=== PATIENT | female | born 1990 | race Caucasian/White ===

== ENCOUNTER 2016-11-15 11:53 | Emergency (ER) | payer OTHER ==
[2016-11-15 12:09] VITALS: BP 114/70; PULSE 86; TEMP 98.4; BMI 30.2
--- NOTE | 2016-11-15 13:48 | PDOC ---
History of Present Illness - General Chief Complaint: Cold Symptoms Stated Complaint: COLD SYMPTOMS, CONGESTION, COUGH Time Seen by Provider: 11/15/16 13:08 History Source: Patient Exam Limitations: No Limitations - History of Present Illness Initial Comments: 11/15/16 13:42 Patient here with complaints of generalized body aches, high fevers, non- productive cough, runny nose and sore throat. Severity: reports: mild Associated Symptoms: reports: chest pain/soreness, cough, facial pain, fever/ chills Past History - Travel Traveled outside of the country in the last 30 days: No Close contact w/someone who was outside of country & ill: No - Past Medical History Allergies/Adverse Reactions: Allergies Allergy/AdvReac Type Severity Reaction Status Date / Time No Known Allergies Allergy Verified 11/15/16 12:09 Home Medications: Ambulatory Orders Doxycycline Hyclate [Vibramycin -] 100 mg PO BID #14 cap 07/23/14 Oseltamivir Phosphate [Tamiflu -] 75 mg PO BID #10 capsule 11/15/16 Other medical history: ENIES - Psycho/Social/Smoking Cessation Hx Anxiety: No Suicidal Ideation: No Smoking History: Never smoked Have you smoked in the past 12 months: No Information on smoking cessation initiated: No Hx Alcohol Use: No Drug/Substance Use Hx: No Substance Use Type: None Review of Systems - Review of Systems Able to Perform ROS?: Yes Is the patient limited Sami proficient: Yes Constitutional: Yes: Symptoms Reported, See HPI, Fever, Malaise Respiratory: Yes: See HPI Cardiac (ROS): No: Symptoms Reported (nonproductive) Integumentary: Yes: Symptoms Reported, See HPI All Other Systems: Reviewed and Negative *Physical Exam - Vital Signs Last Vital Signs Temp Pulse Resp BP Pulse Ox 98.4 F 86 18 114/70 100 11/15/16 12:08 11/15/16 12:08 11/15/16 12:08 11/15/16 12:08 11/15/16 12:08 - Physical Exam General Appearance: Yes: Nourished, Appropriately Dressed, Apparent Distress, Mild Distress, Moderate Distress HEENT: positive: BETTY (glassy), Pharynx Normal (clear), Nasal Congestion Neck: positive: Supple, Lymphadenopathy (R), Lymphadenopathy (L) Respiratory/Chest: positive: Lungs Clear, Wheezing Cardiovascular: positive: Regular Rate Gastrointestinal/Abdominal: positive: Soft Extremity: positive: Normal Capillary Refill, Normal Inspection, Normal Range of Motion Integumentary: positive: Dry, Warm, Pale Neurologic: positive: marketing project specialist II-XII NML intact, Fully Oriented, Alert, Normal Mood/ Affect, Normal Response, Motor Strength 03/15 Progress Note - Progress Note Progress Note: Upper respiratory infection, probable influenza. Will treat with Tamiflu *DC/Admit/Observation/Transfer Diagnosis at time of Disposition: Upper respiratory infection, viral - Discharge Dispostion Disposition: HOME Condition at time of disposition: Stable Admit: No - Patient Instructions Printed Discharge Instructions: DI for Viral Upper Respiratory Infection -- Adult Additional Instructions: Rest, drink lots of fluids: Teas, water, soups, Pedialyte Saltwater gargles Steamy showers/seem to face break up mucus Old-fashioned treatments help! Avoid contact with others until fevers and cough resolved as this is very contagious Lots of handwashing and good hygiene Continue hikr-icy-[id number] medications for symptomatic relief Tylenol or Motrin for fever and pain Take all of Tamiflu as directed: 1 tab every 12 hours for 5 days Followup with private physician in one to 2 days as needed or if worsening Return to emergency department for worsened symptoms, fevers, dehydration Influenza takes between 5 and 7 days for resolution To not participate in any activity, work, or school until fevers and cough are gone for at least one day - Post Discharge Activity Work/School Note: Back to Work
== END 2016-11-15 13:49 | disposition home or self-care (01) ==
LOC: JERFT 11:53
DX: J06.9 Acute upper respiratory infection, unspecified (principal); B97.89 Other viral agents as the cause of diseases classified elsewhere
CPT/HCPCS: 99281-25

== ENCOUNTER 2019-10-21 17:58 | Emergency (ER) | payer OTHER ==
[2019-10-21 18:06] VITALS: BP 121/77; PULSE 81; TEMP 98; BMI 36.3
--- NOTE | 2019-10-21 18:06 | PDOC ---
Rapid Medical Evaluation Time Seen by Provider: 10/21/19 18:04 Medical Evaluation: Allergies Allergy/AdvReac Type Severity Reaction Status Date / Time No Known Allergies Allergy Verified 11/15/16 12:09 10/21/19 18:04 I have performed a brief in-person evaluation of this patient. The patient presents with a chief complaint of: Sore throat w/ congestion, cough and CP only w/ coughing x 4 days. No sob, n/v or fever. No pmhx, non smoker Pertinent physical exam findings:stable and well tye I have ordered the following:nothing The patient will proceed to the ED for further evaluation. Discharge Disposition - Diagnosis URI (upper respiratory infection) Qualifiers: URI type: unspecified viral URI Qualified Code(s): J06.9 - Acute upper respiratory infection, unspecified - Referrals - Patient Instructions - Post Discharge Activity
--- NOTE | 2019-10-21 19:00 | PDOC ---
History of Present Illness - General Chief Complaint: Cold Symptoms Stated Complaint: COLD SYMPTOMS Time Seen by Provider: 10/21/19 18:04 - History of Present Illness Initial Comments: 10/21/19 18:57 29-year-old female without comorbidities presents for cold-like symptoms without systemic symptoms x4 days Past History - Past Medical History Allergies/Adverse Reactions: Allergies Allergy/AdvReac Type Severity Reaction Status Date / Time No Known Allergies Allergy Verified 10/21/19 18:06 Home Medications: Ambulatory Orders Doxycycline Hyclate [Vibramycin -] 100 mg PO BID #14 cap 07/23/14 Oseltamivir Phosphate [Tamiflu -] 75 mg PO BID #10 capsule 11/15/16 COPD: No Other medical history: DENIES - Immunization History Immunization Up to Date: Yes - Psycho Social/Smoking Cessation Hx Smoking History: Never smoked Have you smoked in the past 12 months: No Information on smoking cessation initiated: No Hx Alcohol Use: No Drug/Substance Use Hx: No Substance Use Type: None Review of Systems - Review of Systems Constitutional: No: Fever HEENTM: Yes: Nose Congestion *Physical Exam - Vital Signs Last Vital Signs Temp Pulse Resp BP Pulse Ox 98.0 F 81 18 121/77 99 10/21/19 18:04 10/21/19 18:04 10/21/19 18:04 10/21/19 18:04 10/21/19 18:04 - Physical Exam 10/21/19 18:58 GENERAL: The patient is awake, alert, and fully oriented, in no acute distress. HEAD: Normal with no signs of trauma. EYES: sclera anicteric, conjunctiva clear. ENT: Ears normal tympanic membranes normal oropharynx clear uvula midline NECK: Normal range of motion LUNGS: Breath sounds equal, clear to auscultation bilaterally. No wheezes, and no crackles. HEART: S1 and S2 without murmur, rub or gallop. ABDOMEN: Soft, nontender, normoactive bowel sounds. No guarding, no rebound. No masses. EXTREMITIES: Normal range of motion, no edema. No clubbing or cyanosis. No cords, erythema, or tenderness. NEUROLOGICAL: Cranial nerves II through XII grossly intact. Normal speech, normal gait. PSYCH: Normal mood, normal affect. SKIN: Warm, Dry, normal turgor, no rashes or lesions noted. Medical Decision Making - Medical Decision Making 10/21/19 18:59 Influenza negative no systemic symptoms most likely viral upper respiratory infection supportive care. Discharge - Discharge Information Problems reviewed: Yes Clinical Impression/Diagnosis: URI (upper respiratory infection) Qualifiers: URI type: unspecified viral URI Qualified Code(s): J06.9 - Acute upper respiratory infection, unspecified Condition: Stable Disposition: HOME - Admission No - Follow up/Referral Referrals: Gabi Fan MD [Staff Physician] - - Patient Discharge Instructions Patient Printed Discharge Instructions: DI for Viral Upper Respiratory Infection -- Adult Additional Instructions: Return to the emergency room for worsening symptoms. Without fail please follow -up with your primary care physician in 2 to 3 days for further evaluation and treatment options. - Post Discharge Activity
== END 2019-10-21 19:35 | disposition home or self-care (01) ==
LOC: JERFT 17:58
DX: J06.9 Acute upper respiratory infection, unspecified (principal)
CPT/HCPCS: 87804; 99282-25

== ENCOUNTER 2021-09-20 17:55 | Emergency (ER) | payer OTHER ==
[2021-09-20 18:01] VITALS: BP 128/89; PULSE 84; TEMP 99.5; BMI 37.3
[2021-09-20] MEDS ORDERED: IBUPROFEN 400 MG TABLET (FP) PO ONE ×2 (18:12→18:17)
[2021-09-21 20:12] LABS: SARS-CoV-2 NAA Not Detected (Not Detected)
== END 2021-09-20 18:26 | disposition home or self-care (01) ==
LOC: FER 17:55
DX: R51.9 Headache, unspecified (principal); R50.9 Fever, unspecified; R05.9 Cough, unspecified
CPT/HCPCS: 87804; 99283-25; C9803; U0003; U0005

== ENCOUNTER 2021-09-21 16:25 | Emergency (ER) | payer OTHER ==
[2021-09-21 16:38] VITALS: BP 126/90; PULSE 76; TEMP 99; BMI 37.3
[2021-09-21] MEDS ORDERED: KETOROLAC TROMETHAMINE 30 MG/1 ML VIAL IM ONE (17:01)
[2021-09-21] MEDS ORDERED: KETOROLAC TROMETHAMINE 30 MG/1 ML VIAL ONE (17:03)
== END 2021-09-21 17:42 | disposition home or self-care (01) ==
LOC: FER 16:25
PROC: 3E0233Z Introduction of Anti-inflammatory into Muscle, Percutaneous Approach (ICD-10-PCS; principal; 2021-09-21)
DX: J06.9 Acute upper respiratory infection, unspecified (principal)
CPT/HCPCS: 99283-25